=== PATIENT | female | born 1985 | race Caucasian/White ===

== ENCOUNTER 2019-11-24 17:00 | Emergency (ER) | payer BC ==
--- NOTE | 2019-11-24 18:06 | ER Document Report ---
ED Medical Screen (RME) - General Chief Complaint: ETOH Abuse Stated Complaint: ALCOHOL WITHDRAWL Time Seen by Provider: 11/24/19 17:55 Mode of Arrival: Ambulatory Information source: Patient Notes: 34 yo female presents to ed for alcohol abuse. She states her boyfriend brought her here after calling the sheriff's sergeant because her mother is dying of alcohol abuse and he got her a bed at [facility] and she refused to go. We have explained to her that she has to agree to go to a voluntary commitment at [facility]. She states she has not had any alcohol to drink today. She states she is not drunk at this ti wa. She is very upset and confused about her mother dying. I have offered lab work and to help her to get over the [facility]. She states now she wants to go home she does not want to go to [facility] she is not having any thoughts of suicide she does not have any thoughts of homicide and she does not want to go to [facility] I have tried to encourage her to go to [facility] or to at least get blood work and a outpatient referral referral. She states she knows what she needs to do and she is not going to [facility]. Course - Re-evaluation Re-evalutation: 11/24/19 18:03 The patient has chosen to leave the facility against medical advice. The relevant issues have been reviewed and discussed with the patient and family at the bedside. At the time of this assessment there is no indication for involuntary commitment. The patient is alert, oriented, and able to express clearly their reasoning for not wanting to remain in the emergency department for further treatment. The patient is not clinically psychotic, intoxicated, and denies and suicidal ideation. Differential or suspected diagnoses based on medical screening exam: Alcohol abuse. The patient is aware of the concerning diagnoses and acknowledges understanding of the reasons for the following recommendations: The following recommendations/services were offered and refused: The following risks were explained: , permanent disability, loss of function Clinical impression: Patient is competent to make decisions regarding the medical that is being offered. Doctor's Discharge - Discharge Clinical Impression: Alcohol abuse Condition: Stable Disposition: AGAINST MEDICAL ADVICE Additional Instructions: You were seen today for alcohol abuse. You are signing out AGAINST MEDICAL ADVICE. We have discussed the risk of you going home AGAINST MEDICAL ADVICE. To include from intoxication FOLLOW-UP CARE: If you have been referred to a physician for follow-up care, call the physicians office for an appointment as you were instructed or within the next two days. If you experience worsening or a significant change in your symptoms, notify the physician immediately or return to the Emergency Department at any time for re-evaluation.
== END 2019-11-24 18:00 | disposition left against medical advice (07) ==
LOC: ER 17:00
DX: F10.10 Alcohol abuse, uncomplicated (principal)
CPT/HCPCS: 99283